=== PATIENT | female | born 1950 | race Caucasian/White ===

== ENCOUNTER 2018-02-02 15:56 | Emergency (ER) | payer OTHER, MEDICARE ==
[~2018-02-02] VITALS: Ht 170.2 cm; Wt 63.0 kg
[2018-02-02] MEDS ORDERED: LISINOPRIL-HCT1 EACH PO (16:09)
[2018-02-02] MEDS ORDERED: TRAMADOL 50 MG50 MG PO (16:09)
[2018-02-02] MEDS ORDERED: SEROQUEL 50 MG50 MG PO (16:09)
[2018-02-02] MEDS ORDERED: CELEXA20 MG PO (16:09)
[2018-02-02] MEDS ORDERED: AMBIEN 5 MG TABL5 M1 PO (16:10)
[2018-02-02] MEDS ORDERED: XANAX 0.5 MG0.5 MG PO (16:10)
[2018-02-02] MEDS ORDERED: FOLIC ACID1 MG PO (16:10)
[2018-02-02] MEDS ORDERED: METHOTREXATE 22.5 MG PO (16:11)
[2018-02-02] MEDS ORDERED: HYDROXYCHLOROQ200 M1 PO (16:11)
[2018-02-02 16:36] LABS: ABSOLUTE LYMPHOCYTES 1.7 thou/uL (0.8-5.3); ABSOLUTE MONOCYTES 0.8 thou/uL (0.0-1.2); ABSOLUTE NEUTROPHILS 6.5 thou/uL (1.6-8.1); BASOPHILS 0.4 %; EOSINOPHILS 0.3 %; HEMATOCRIT 34.5 % (37.0-47.0); HEMOGLOBIN 12.3 gm/dL (12.0-15.0); LYMPHOCYTES 19.2 %; MCH 31.5 pg (26.0-34.0); MCHC 35.6 g/dL (28.0-37.0); MCV 88.5 fL (80.0-100.0); MONOCYTES 8.6 %; MPV 6.7 fl. (7.2-11.1); NUCLEATED RBCS 0 /100WBC; PLATELET COUNT* 436 thou/uL (150-400); POLYS 71.5 %; RDW-CV 12.6 % (10.5-14.5)
[2018-02-02 16:44] LABS: CALCIUM 9.5 mg/dL (8.5-10.1); CREATININE 0.9 mg/dL (0.6-1.3); POTASSIUM 3.5 mmol/L (3.5-5.1)
[2018-02-02 16:49] LABS: TOTAL BILIRUBIN 0.6 mg/dL (<0.1-1.0); TOTAL PROTEIN 7.4 g/dL (6.4-8.2)
[2018-02-02 17:07] LABS: URINE BILIRUBIN NEGATIVE (Negative); URINE BLOOD NEGATIVE (Negative); URINE CLARITY CLEAR; URINE COLOR YELLOW; URINE GLUCOSE-RANDOM NEGATIVE (Negative); URINE KETONES TRACE (Negative); URINE LEUKOCYTES 2+ (Negative); URINE NITRITE NEGATIVE (Negative); URINE PROTEIN NEGATIVE (Negative); URINE SPECIFIC GRAVITY 1.015 (1.005-1.030)
[2018-02-02 17:14] LABS: AMP/METHAMP Negative (Negative); BARBITURATES Negative (Negative); BENZODIAZEPINES POSITIVE (Negative); COCAINE Negative (Negative); METHADONE Negative (Negative); OPIATES Negative (Negative); PCP Negative (Negative); SQUAMOUS >10 Many /LPF (0-3); THC Negative (Negative); URINE RBC None Seen /HPF (0-2); URINE WBC 6-15 Few /HPF (0-5)
[2018-02-02 17:15] LABS: CASTS None Seen /LPF (None Seen); CRYSTALS None Seen /LPF (None Seen)
[2018-02-02] MEDS ORDERED: KEFLEX500 M1 PO (17:23)
[2018-02-02 17:38] VITALS: BP 111/66
== END 2018-02-02 17:38 | disposition home or self-care (01) ==
LOC: M.ERS 15:56
PROVIDERS: Nurse Practitioner Family
DX: F41.9 Anxiety disorder, unspecified (principal); N39.0 Urinary tract infection, site not specified; F31.9 Bipolar disorder, unspecified; I10 Essential (primary) hypertension

== ENCOUNTER 2018-02-05 15:18 | Emergency (ER) | payer OTHER, MEDICARE ==
[~2018-02-05] VITALS: Ht 170.2 cm; Wt 62.1 kg
[~2018-02-05 15:18] MED LIST: AMBIEN 5 MG TABL5 M1 PO; CELEXA20 MG PO; FOLIC ACID1 MG PO; HYDROXYCHLOROQ200 M1 PO; KEFLEX500 M1 PO; LISINOPRIL-HCT1 EACH PO; METHOTREXATE 22.5 MG PO; SEROQUEL 50 MG50 MG PO; TRAMADOL 50 MG50 MG PO; XANAX 0.5 MG0.5 MG PO
[2018-02-05 16:48] VITALS: BP 106/71
== END 2018-02-05 16:48 | disposition home or self-care (01) ==
LOC: M.ERS 15:18
DX: F41.9 Anxiety disorder, unspecified (principal); F31.9 Bipolar disorder, unspecified; R06.82 Tachypnea, not elsewhere classified; I10 Essential (primary) hypertension

== ENCOUNTER → 2018-02-20 | Outpatient (CLI) | payer OTHER, MEDICARE | LOC: M.RAD 17:15 | DX: M54.5 Low back pain (principal); I10 Essential (primary) hypertension ==

== ENCOUNTER 2019-05-01 05:28 | Emergency (ER) | payer OTHER, MEDICARE ==
[~2019-05-01] VITALS: Ht 162.6 cm; Wt 65.8 kg
[2019-05-01] MEDS ORDERED: LOSARTAN-HCTZ1 EAC3 PO (05:39)
[2019-05-01] MEDS ORDERED: BUTALB-APAP-CA1 EACH PO (06:41)
[2019-05-01 07:05] VITALS: BP 123/71
== END 2019-05-01 07:06 | disposition home or self-care (01) ==
LOC: M.ERS 05:28
DX: G43.909 Migraine, unspecified, not intractable, without status migrainosus (principal); F41.9 Anxiety disorder, unspecified; I10 Essential (primary) hypertension; F31.9 Bipolar disorder, unspecified